=== PATIENT | male | born 1990 | race Caucasian/White ===

== ENCOUNTER 2021-03-09 18:24 | Emergency (ER) | payer OTHER ==
[~2021-03-09] VITALS: Ht 185.4 cm; Wt 86.2 kg
== END 2021-03-09 22:42 ==
LOC: ER 18:24
DX: S01.01XA Laceration without foreign body of scalp, initial encounter (principal); W26.8XXA Contact with other sharp object(s), not elsewhere classified, initial encounter; Y99.0 Civilian activity done for income or pay